=== PATIENT | male | born 1955 | race African-American/Black ===

== ENCOUNTER 2020-08-22 17:36 | Emergency (ER) | payer SELFPAY ==
[~2020-08-22] VITALS: Ht 182.9 cm; Wt 78.0 kg
[2020-08-22 18:40] VITALS: BP 128/67
== END 2020-08-22 21:03 | disposition left against medical advice (07) ==
LOC: ER 20:36
DX: T40.1X1A Poisoning by heroin, accidental (unintentional), initial encounter (principal); I10 Essential (primary) hypertension; Y92.018 Other place in single-family (private) house as the place of occurrence of the external cause
CPT/HCPCS: 93005; 99283